=== PATIENT | female | born 1995 | race Two or more races ===

== ENCOUNTER 2020-08-07 06:11 | Emergency (ER) | payer OTHER ==
[~2020-08-07] VITALS: Ht 157.5 cm; Wt 72.6 kg
[2020-08-07] MEDS ORDERED: traMADol HCL 50 MG TAB PO ONE (08:15)
[2020-08-07 08:17] VITALS: BP 140/88
[2020-08-07] MEDS ORDERED: ONDANSETRON HCL 4 MG/2 ML VIAL ONE (09:11)
[2020-08-07] MEDS ORDERED: ONDANSETRON HCL 4 MG/2 ML VIAL IM ONE (09:15)
== END 2020-08-07 09:53 | disposition home or self-care (01) ==
LOC: ER 06:11 → EDBD 06:11 → ER 09:47
DX: S80.01XA Contusion of right knee, initial encounter (principal); S09.8XXA Other specified injuries of head, initial encounter; V43.52XA Car driver injured in collision with other type car in traffic accident, initial encounter; Y93.89 Activity, other specified; Y92.488 Other paved roadways as the place of occurrence of the external cause; Y99.8 Other external cause status
CPT/HCPCS: 70450; 73562; 73590; 96372; 99284; J2405

== ENCOUNTER 2021-03-03 15:43 | Emergency (ER) | payer MEDICAID, OTHER ==
[~2021-03-03] VITALS: Ht 157.5 cm; Wt 82.6 kg
[2021-03-03] MEDS ORDERED: ACETAMINOPHEN/CODEINE#3 (300/30mg) TAB PO ONE (20:00)
[2021-03-03 20:35] VITALS: BP 154/97
== END 2021-03-03 20:52 | disposition home or self-care (01) ==
LOC: ER 15:43
DX: S92.351A Displaced fracture of fifth metatarsal bone, right foot, initial encounter for closed fracture (principal); S93.401A Sprain of unspecified ligament of right ankle, initial encounter; W01.0XXA Fall on same level from slipping, tripping and stumbling without subsequent striking against object, initial encounter; Y93.89 Activity, other specified; Y92.89 Other specified places as the place of occurrence of the external cause; Y99.8 Other external cause status
CPT/HCPCS: 29515; 73610; 73630